=== PATIENT | female | born 1935 | race Caucasian/White ===

== ENCOUNTER 2016-11-04 15:27 | Inpatient (IN) | payer MEDICARE ==
--- NOTE | ~2016-11-04 | EKG ---
PATIENT: JI APODACA UNIT #: [id number] Ventricular Rate: 100 BPM Atrial Rate: 115 BPM QRS Duration: 104 ms Q-T Interval: 450 ms QTC Calculation(Bezet): 580 ms Calculated R Yale: -12 degrees Calculated T Yale: -107 degrees Diagnosis Line: Atrial fibrillation Diagnosis Line: Nonspecific ST and T wave abnormality Diagnosis Line: Prolonged QT Diagnosis Line: Abnormal ECG Diagnosis Line: When compared with ECG of 09-APR-2016 06:42, Diagnosis Line: Nonspecific T wave abnormality, worse in Anterior Diagnosis Line: leads Diagnosis Line: Nonspecific T wave abnormality has replaced Diagnosis Line: inverted T waves in Lateral leads Diagnosis Line: QT has lengthened Diagnosis Line: Confirmed by ANDRZEJ CALDERON MD ([id number]) on Diagnosis Line: 11/06/2016 9:58:21 AM INTERPRETING MD: GREG
--- NOTE | ~2016-11-04 | DS ---
Unit #: [id number] #: [id number] Patient: JI CONLEY [id number] [address] [address] [id number] MR#: [id number] NAME: JI CONLEY. ROOM: 461 Age: 81 Sex: F Admission Date: 11/04/2016 : 1935 Discharge Date: 11/06/2016 Attending Physician: Bere Romero M.D. Primary Care Physician: Anny Mcdonough M.D. DISCHARGE SUMMARY PRIMARY CARE PROVIDER Dr. Anny Mcdonough. PRINCIPAL DIAGNOSES 1. Sepsis secondary to gram-negative marck urinary tract infection. Urine culture is currently pending. 2. Toxic metabolic encephalopathy secondary to #1, now resolved. 3. Vitamin B12 deficiency with a vitamin B12 level of 142. 4. Hyperglycemia with normal hemoglobin A1c of 5.2. 5. History of paroxysmal atrial fibrillation, currently maintained in normal sinus rhythm. 6. Coronary artery disease. 7. Hypertension. 8. Chronic systolic congestive heart failure with ejection fraction of 45% to 50%. 9. Hyperlipidemia. 10. Hypothyroidism. 11. Mild deconditioning. CONSULTANTS None. PROCEDURES None. CLINICAL HISTORY AND HOSPITAL COURSE Ms. Conley is a nice 81-year-old female, who is brought to the emergency department due to confusion and vomiting. In the emergency department, she was found to have significant urinary tract infection and she was subsequently admitted. The patient was started on empiric Rocephin. Her nausea and vomiting subsequently resolved. Her urine culture is currently growing gram-negative rods; however, I will note she has remained afebrile and her leukocytosis which was present upon admission at 14 is now decreased to 5.3 again on empiric Rocephin, her confusion is also resolved. I am going to discharge her home on Omnicef and I will follow up urine culture tomorrow to ensure appropriateness of antibiotic therapy. The patient was also found to be significantly vitamin B12 deficient per me with a vitamin B12 level of 142. She did receive subcutaneous injections while hospitalized. I will send her home on oral tablets but honestly, she would best be served by at least weekly injections for four Unit #: [id number] #: [id number] Patient: JI CONLEY in the office and then monthly injections afterwards. The patient again is physically deconditioned, but she is refusing subacute rehab and she is also refusing Home Health. I have discussed this with her son, who states he will keep a close eye on her and we will discharge her home. DISCHARGE CONDITION Stable. DISCHARGE STATUS Discharged to home. DISCHARGE MEDICATIONS Omnicef 300 mg p.o. b.i.d. for another five days. Eliquis 5 mg p.o. b.i.d., please note this is the recommended dose. The patient is on 5 mg daily and if appropriate with Anny Mcdonough, this dose can be decreased. Celexa 20 mg daily. Lopressor 50 mg b.i.d. Flonase 1 spray per nostril daily. Lasix 40 mg daily. Lisinopril 2.5 mg daily. Aspirin 81 mg daily. Klor-Con 20 mEq p.o. daily. Levothyroxine 50 mcg p.o. daily. Imdur ER 30 mg daily. Vitamin B12 1000 mcg p.o. daily. DISCHARGE INSTRUCTIONS The patient was instructed to follow heart healthy diet. She can increase her activity as tolerated. FOLLOWUP The patient will follow up with Anny Mcdonough in 1 week. Again, would benefit from outpatient vitamin B12 injections in the office. Time spent on discharge today, 32 minutes. Dictated by... Bere Romero M.D. DEMARCUS/tahira TD: 11/07/2016 09:42 JOB #: [id number] DISCHARGE SUMMARY Page 1 of 1 X Bere Romero MD X DISCHARGE SUMMARY
--- NOTE | ~2016-11-04 | HP ---
Unit #: [id number] #: [id number] Patient: JI APODACA [id number] [address] [place], [place] [address] [id number] I MR#: [id number] NAME: JI APODACA. ROOM: 461 Age: 81 Sex: F Admission Date: 11/04/2016 : 1935 Attending Physician: Bere Romero M.D. Primary Care Physician: Anny Mcdonough M.D. HISTORY AND PHYSICAL CHIEF COMPLAINT Vomiting, shakes HISTORY OF PRESENT ILLNESS The patient is a 81-year-old female with past medical history of hypertension, hyperlipidemia, paroxysmal atrial fibrillation, chronic anticoagulation, CHF, coronary artery disease, hypothyroidism, who presented to the emergency department for evaluation of the above. The patient states that she has had a 4-5 day history of nausea, vomiting and diarrhea. She denies any fever. She denies any urinary symptoms. Today, she was seeing things that were not there, similar to when she has had a urinary tract infection in the past. She was brought to the emergency department for further evaluation. In the emergency department, initial pulse and blood pressure were 106 and 163/106 respectively. Urinalysis shows findings concerning for urinary tract infection. She was given Rocephin in the emergency department as well as 500 mL of normal saline, 4 mg of Zofran, 20 mg of Pepcid. She is being admitted to [facility] for evaluation and further treatment. PAST MEDICAL HISTORY 1. Admission to [facility] April 08-2015, for congestive heart failure and pneumonia. She underwent cardiac catheterization during that admission. Per the discharge summary, the ostial left main was 20% stenosed, mid left anterior descending 40-50%, mild right coronary artery 40%, ejection fraction was 45-50%. 2. Coronary artery disease with cardiac catheterization, results as noted above. The patient has seen Dr. Cai in the past. 3. Congestive heart failure with ejection fraction of 45-50% noted on cardiac catheterization March 2016. 4. Paroxysmal atrial fibrillation, on chronic anticoagulation with Eliquis; also on amiodarone and Lopressor. 5. Hypertension. 6. Hyperlipidemia. 7. Hypothyroidism. PAST SURGICAL HISTORY 1. Left knee surgery. 2. Left ankle surgery. 3. Hysterectomy. 4. Cardiac catheterization. SOCIAL HISTORY The patient lives alone. Her son lives nearby. She quit smoking years Unit #: [id number] #: [id number] Patient: JI APODACA. She walks with a cane. Family history is notable for gastric cancer. ALLERGIES Hydrocodone HOME MEDICATIONS Per the discharge summary from March 2016 include: 1. Eliquis (listed as 5 mg daily, we will check with patient as it should be twice daily) 2. Aspirin 81 mg daily 3. Celexa 20 mg daily 4. Flonase daily 5. Lasix 40 mg daily 6. Imdur 30 mg daily 7. Synthroid 50 mcg daily 8. Zestril 2.5 mg daily 9. Lopressor 50 mg twice daily 10. Potassium 20 mEq daily Per the discharge summary, the patient was on amiodarone per the discharge, however, it does not look like she is still taking amiodarone. DIAGNOSIS STUDIES LABORATORY: Complete blood count notable for white blood cell count of 14. Comprehensive metabolic panel notable for potassium of 3.3, glucose 115, alkaline phosphatase 113, lipase is 40, urinalysis notable for trace leukocyte esterase, positive nitrate, 1+ protein, 5-10 white blood cells, 4+ bacteria, occasional squamous cells. PHYSICAL EXAMINATION VITAL SIGNS: Temperature 97.8, pulse 106, respirations 18, blood pressure 160/97. Oxygen saturation is 95% on room air. GENERAL: The patient is a female who is awake and alert in no acute distress. HEENT: The head is atraumatic. Mucous membranes are moist. NECK: Supple. Trachea is midline. CARDIOVASCULAR: Regular rate and rhythm. LUNGS: Clear to auscultation bilaterally with no increased work of breathing. ABDOMEN: Soft. She is mildly tender to palpation in the suprapubic area. Bowel sounds are present in all four quadrants. EXTREMITIES: Nontender with no pedal edema. NEUROLOGIC: The patient is awake and alert. She is oriented x3. She follows commands. PSYCHIATRIC: Mood and affect are normal. The patient is cooperative. SKIN: Of examined areas is warm and dry. ASSESSMENT The patient is a 81-year-old female with: 1. Altered mental status. 2. Urinary tract infection. The patient received Rocephin in the emergency department. 3. Nausea, vomiting and diarrhea. 4. Sepsis. 5. Hypokalemia. 6. Hypertension. 7. Hyperlipidemia. 8. Paroxysmal atrial fibrillation. Unit #: [id number] #: [id number] Patient: JI APODACA 9. Chronic anticoagulation with Eliquis. 10. Congestive heart failure with ejection fraction of 45-50% noted on cardiac catheterization in March 2016. 11. Coronary artery disease. 12. Hypothyroidism. 13. Former smoker. PLAN 1. Admit to intermediate level. 2. Advance diet to clear liquids as tolerated. 3. Normal saline at 75 mL per hour. 4. TSH, B12 and folate. 5. Neuro checks. 6. Blood cultures x2. 7. Urine culture and sensitivity and urine in the lab. 8. Rocephin 1 gram IV daily pending result of urine culture. 9. Zofran p.r.n. 10. Stool studies including ova and parasites, Clostridium difficile, culture and sensitivity. 11. Sepsis protocol with stat lactic acid and repeat. 12. Check EKG and cardiac enzymes. 13. Check magnesium level. 14. Potassium/magnesium protocol. 15. Fall precautions. 16. Sequential compression devices for deep venous thrombosis prophylaxis. 17. Repeat labs in the morning. 18. Additional workup and consultants based on above. Dictated by Gala Shi M.D. SON/yolanda TD: 11/05/2016 12:39 JOB #: [id number] HISTORY AND PHYSICAL Page 1 of 1 X Gala Shi MD X HISTORY AND PHYSICAL
[~2016-11-04 15:27] MED LIST: ASPIRIN EC81 M1 PO; ASPIRIN81 MG PO; CELEXA20 M1 PO; CITALOPRAM HBR40 MG PO; ELIQUIS5 MG PO; FUROSEMIDE40 MG PO; HYDROCODON-ACE1 EAC7 PO; IMDUR-ER30 M1 PO; LEVAQUIN PO; LEVOTHYROXINE25 MC1 PO; LISINOPRIL2.5 MG PO; LOPRESSOR PO; METOPROLOL SUCC25 MG PO; NITROFURANTOIN100 M3 PO; OXAYDO7.5 MG PO; PACERONE PO; POTASSIUM CHLO20 ME1 PO; SIMVASTATIN20 MG PO; TOPROL XL 50 MG50 MG PO
[2016-11-04] MEDS ORDERED: ELIQUIS5 MG PO (16:51)
[2016-11-04] MEDS ORDERED: CITALOPRAM HBR40 MG PO (16:51)
[2016-11-04] MEDS ORDERED: ASPIRIN81 M2 PO (16:51)
[2016-11-04] MEDS ORDERED: FLONASE SENSIM9.9 ML (16:53)
[2016-11-04] MEDS ORDERED: IMDUR-ER30 M2 PO (16:53)
[2016-11-04] MEDS ORDERED: LASIX PO (16:53)
[2016-11-04] MEDS ORDERED: LISINOPRIL PO (16:54)
[2016-11-04] MEDS ORDERED: LOPRESSOR PO (16:54)
[2016-11-04] MEDS ORDERED: SYNTHROID PO (16:54)
[2016-11-04] MEDS ORDERED: KCL PO (16:55)
[2016-11-04 17:10] LABS: BASOPHIL# 0.1 X10e3 (0-0.3); BASOPHIL% 0.6 % (0-2.5); EOSINOPHIL% 0.2 % (0.0-7.0); HEMOGLOBIN 15.2 gm/dL (12.0-16.0); LYMPHOCYTE# 0.4 X10e3 (1.0-3.5); LYMPHOCYTE% 2.5 % (17.0-45.0); MEAN CELL VOLUME 91.1 FL (83-96); MEAN CORPUSCULAR HEMOGLOBIN 29.4 PG (28-34); MEAN CORPUSCULAR HGB CONC 32.3 g/dL (30-36); MEAN PLATELET VOLUME 8.9 FL (6.5-11.5); MONOCYTE# 3.8 X10e3 (0-1.0); MONOCYTE% 26.8 % (3.0-12.0); NEUTROPHIL# 9.8 X10e3 (1.5-7.1); NEUTROPHIL% 69.9 % (40-75); PLATELET COUNT 208 X10e3 (140-420); RED BLOOD COUNT 5.17 X10e (3.90-5.30); RED CELL DISTRIBUTION WIDTH 13.6 % (11.0-15.5)
[2016-11-04 17:20] LABS: DIFF IND NO
[2016-11-04 17:30] LABS: ALBUMIN SERUM 4.1 g/dL (3.5-5.0); BILIRUBIN, DIRECT 0.3 mg/dL (0.0-0.2); BILIRUBIN,INDIRECT 0.8 mg/dL (0.0-0.9); BILIRUBIN,TOTAL 1.1 mg/dL (0.2-2.0); BUN/CREATININE RATIO 18.57; CALCIUM SERUM 9.1 mg/dL (8.4-10.2); CREATININE SERUM 0.7 mg/dL (0.6-1.4); GLOM FILT RATE Estimated 82.4 mL/min (>60); POTASSIUM 3.3 mmol/L (3.5-5.1); PROTEIN TOTAL SERUM 7.2 g/dL (6.0-8.3)
[2016-11-04 17:39] LABS: URINE SOURCE CLEAN CATCH
[2016-11-04 17:50] LABS: URINE APPEARANCE CLEAR; URINE BILIRUBIN NEG (NEG); URINE BLOOD TRACE (NEG); URINE COLOR YELLOW; URINE GLUCOSE NEG (NEG); URINE KETONE NEG (NEG); URINE LEUKOCYTE ESTERASE TRACE (NEG); URINE NITRATE POS (NEG); URINE PH 5.5 (5-8); URINE PROTEIN 1+ (NEG); URINE SPECIFIC GRAVITY 1.012 (1.003-1.035)
[2016-11-04 17:54] LABS: CULTURE INDICATED? YES; URBCS1 AUWI 0-2 /[HPF] (0-2); URINE BACTERIA AUWI 4+ (NEGATIVE); URINE SQUAMOUS EPITHELIAL CELL OCC /[HPF]
[2016-11-04 20:58] LABS: CK TOTAL 36 IU/L (26-140)
[2016-11-05 03:34] LABS: BASOPHIL% 0.1 % (0-2.5); DIFF IND NO; EOSINOPHIL# 0.1 X10e3 (0-0.7); EOSINOPHIL% 0.5 % (0.0-7.0); HEMATOCRIT 43.7 % (35.0-45.0); HEMOGLOBIN 14.3 gm/dL (12.0-16.0); LYMPHOCYTE# 0.7 X10e3 (1.0-3.5); LYMPHOCYTE% 5.1 % (17.0-45.0); MEAN CELL VOLUME 90.9 FL (83-96); MEAN CORPUSCULAR HEMOGLOBIN 29.8 PG (28-34); MEAN CORPUSCULAR HGB CONC 32.8 g/dL (30-36); MEAN PLATELET VOLUME 9.1 FL (6.5-11.5); MONOCYTE# 0.4 X10e3 (0-1.0); MONOCYTE% 3.2 % (3.0-12.0); NEUTROPHIL# 11.6 X10e3 (1.5-7.1); NEUTROPHIL% 91.1 % (40-75); PLATELET COUNT 208 X10e3 (140-420); RED BLOOD COUNT 4.81 X10e (3.90-5.30); RED CELL DISTRIBUTION WIDTH 13.5 % (11.0-15.5); WHITE BLOOD COUNT 12.8 X10e3 (4.0-10.5)
[2016-11-05 03:42] LABS: CK TOTAL 37 IU/L (26-140)
[2016-11-05 03:46] LABS: ALBUMIN SERUM 3.5 g/dL (3.5-5.0); BILIRUBIN,TOTAL 0.9 mg/dL (0.2-2.0); BUN/CREATININE RATIO 18.57; CALCIUM SERUM 8.5 mg/dL (8.4-10.2); CREATININE SERUM 0.7 mg/dL (0.6-1.4); GLOM FILT RATE Estimated 82.4 mL/min (>60); POTASSIUM 4.3 mmol/L (3.5-5.1); PROTEIN TOTAL SERUM 6.5 g/dL (6.0-8.3)
[2016-11-05 04:18] LABS: FOLATE (FOLIC ACID) 8.2 ng/mL (>5.8)
[2016-11-05 09:03] LABS: CK TOTAL 39 IU/L (26-140)
[2016-11-06 03:26] LABS: HEMATOCRIT 40.3 % (35.0-45.0); HEMOGLOBIN 13.1 gm/dL (12.0-16.0); MEAN CELL VOLUME 91.2 FL (83-96); MEAN CORPUSCULAR HEMOGLOBIN 29.6 PG (28-34); MEAN CORPUSCULAR HGB CONC 32.4 g/dL (30-36); RED BLOOD COUNT 4.42 X10e (3.90-5.30); RED CELL DISTRIBUTION WIDTH 13.5 % (11.0-15.5)
[2016-11-06 03:28] LABS: WHITE BLOOD COUNT 5.3 X10e3 (4.0-10.5)
[2016-11-06 03:54] LABS: CALCIUM SERUM 8.4 mg/dL (8.4-10.2); CREATININE SERUM 0.6 mg/dL (0.6-1.4); GLOM FILT RATE Estimated 86.7 mL/min (>60); POTASSIUM 4.2 mmol/L (3.5-5.1)
[2016-11-06] MEDS ORDERED: ELIQUIS5 MG PO (15:15)
[2016-11-06] MEDS ORDERED: B-121000 MC1 PO (15:18)
[2016-11-06] MEDS ORDERED: OMNICEF300 M1 PO (15:18)
== END 2016-11-06 16:30 | disposition home or self-care (01) | DRG 871 ==
LOC: CED 15:27 → CEDOF 19:10 → CED 19:56 → C4C 21:55 → CEDOF 21:55 → C4C 11-05 06:41
PROVIDERS: Emergency Medicine; Family Medicine; Internal Medicine
DX: A41.50 Gram-negative sepsis, unspecified (principal); G92 Toxic encephalopathy; N39.0 Urinary tract infection, site not specified; I11.0 Hypertensive heart disease with heart failure; I50.22 Chronic systolic (congestive) heart failure; E53.8 Deficiency of other specified B group vitamins; R73.9 Hyperglycemia, unspecified; I48.0 Paroxysmal atrial fibrillation; I25.10 Atherosclerotic heart disease of native coronary artery without angina pectoris; E78.5 Hyperlipidemia, unspecified; E03.9 Hypothyroidism, unspecified; Z90.710 Acquired absence of both cervix and uterus; Z79.01 Long term (current) use of anticoagulants; Z87.891 Personal history of nicotine dependence; E87.6 Hypokalemia
CPT/HCPCS: 36415; 51701; 80048; 80053; 80076; 81003; 82550; 82607; 82746; 83036; 83605; 83690; 83735; 84443; 84484; 85025; 85027; 87040; 87086; 87088; 87186; 93005; 96361; 96374; 96375; 97162; 97166; 97530; 99285; G8978-GP; G8979-GP; G8987-GO; G8988-GO; J0696; J2405; J3420; J3475